=== PATIENT | female | born 1955 | race Caucasian/White ===

== ENCOUNTER 2021-01-11 06:18 | Inpatient (IN) | payer OTHER ==
[2021-01-05 12:34] LABS: HCT 38.7 % (37.0-47.0); HGB 13.7 g/dl (12.5-16.0); MCH 31.9 pg (25.0-31.0); MCHC 35.4 g/dL (32.0-36.0); MPV 8.9 fL (6.0-9.5); RBC 4.3 M/uL (4.20-5.40); RDW 11.9 % (11.5-14.0); WBC 7.7 K/uL (4.0-10.5)
[2021-01-05 12:35] LABS: BILIRUBIN NEGATIVE (NEGATIVE); BLOOD NEGATIVE Ery/uL (NEGATIVE); CLARITY SLIGHTLY HAZY (CLEAR); COLOR YELLOW (YELLOW); GLUCOSE (U) NORMAL (NORMAL); LEUKOCYTES 1+ Leu/uL (NEGATIVE); NITRITE NEGATIVE (NEGATIVE); PROTEIN NEGATIVE (NEGATIVE); SPECIFIC GRAVITY 1.015 (1.001-1.030); UROBILINOGEN 0.2 mg/dL (0.2-1.0); pH 7.5 (5.0-9.0)
[2021-01-05 12:45] LABS: INR 0.92 (0.9-1.2); PROTHROMBIN TIME 11.7 SECONDS (11.4-13.6); PTT 26.1 SECONDS (22.2-34.7)
[2021-01-05 13:45] LABS: CREATININE 0.64 mg/dL (0.51-0.95)
[2021-01-05 13:46] LABS: ALBUMIN 4.3 g/dL (3.4-5.0); BILIRUBIN - TOTAL 0.3 mg/dL (0.2-1.0); GLOBULIN (CALCULATION) 2.9 g/dL; TOTAL PROTEIN 7.2 g/dL (6.4-8.2)
[2021-01-05 13:48] LABS: POTASSIUM 4.2 mmol/L (3.5-5.1)
[~2021-01-11] VITALS: Ht 160 cm; Wt 62.0 kg
[~2021-01-11 06:18] MED LIST: AZELASTINE205.5 MCG/; BUPROPION HCL150 M1 PO; CLOBETASOL 0.0560 GM TOP; ESTRADIOL1 EAC1 TOP; GLUCOSAMINE CH1 EAC2 PO; IBUPROFEN400 MG PO; MELATONIN5 M2 PO; PAROXETINE HCL40 MG PO; PROVERA2.5 MG PO; TRETINOIN TOP; TYLENOL500 MG PO; VITAMIN D310 MC1 PO; ZETIA10 MG PO; [UNRECOGNIZED DRUG - OTHER] PO
--- NOTE | 2021-01-11 13:43 | NUR ---
[facility]. FIRST APPT. IS 01/13/21 @ 3:00 P.M. PT. HAS A ROLLING WALKER AND 09/21.
[2021-01-12 06:32] LABS: BASOPHIL 0.2 % (0-2); EOSINOPHIL 0.2 % (0-5); HCT 23.9 % (37.0-47.0); HGB 8.1 g/dl (12.5-16.0); LYMPHOCYTE 21.4 % (15-48); MCH 31.6 pg (25.0-31.0); MCHC 33.9 g/dL (32.0-36.0); MCV 93.4 fL (78.0-100.0); MONOCYTE 11.7 % (0-12); MPV 9.2 fL (6.0-9.5); NRBC 0; PLT 180 K/uL (150-400); RBC 2.56 M/uL (4.20-5.40); RDW 11.9 % (11.5-14.0); WBC 10.6 K/uL (4.0-10.5)
[2021-01-12 07:00] LABS: BUN/CREAT RATIO (CALC) 20.6 RATIO; CREATININE 0.63 mg/dL (0.51-0.95); POTASSIUM 4.3 mmol/L (3.5-5.1)
[2021-01-12] MEDS ORDERED: FEOSOL325 MG PO (09:17)
[2021-01-12] MEDS ORDERED: NORCO 5-325 TA1 EACH PO (09:17)
[2021-01-12] MEDS ORDERED: XARELTO10 MG PO (09:17)
[2021-01-12] MEDS ORDERED: ZOFRAN4 M1 PO (09:19)
--- NOTE | 2021-01-12 10:25 | NUR ---
tc to moises at [phone] with [facility] for PA of MACARIO. PA NUMBER IS [id number]. TC TO ERNESTO [phone] SPOKE WITH DAYO VARMA FOR MACARIO IS $40.00. ADVISED PT. OF THIS INFOMATION WELL CONFIRMED HER APPT. WITH ANDRÉS FOR 01/13/2021 @ 3:00 P.M.
== END 2021-01-12 12:37 | disposition home or self-care (01) | DRG 470 ==
LOC: FSDC 06:18 → FMS 06:18
PROVIDERS: ADMIT Legal Medicine
PROC: 0SRB04A Replacement of Left Hip Joint with Ceramic on Polyethylene Synthetic Substitute, Uncemented, Open Approach (ICD-10-PCS; principal; 2021-01-11 08:30)
DX: M16.12 Unilateral primary osteoarthritis, left hip (principal); F32.9 Major depressive disorder, single episode, unspecified; E78.00 Pure hypercholesterolemia, unspecified; Z20.822 Contact with and (suspected) exposure to COVID-19; Z90.722 Acquired absence of ovaries, bilateral; Z98.890 Other specified postprocedural states; Z79.899 Other long term (current) drug therapy
CPT/HCPCS: 36415; 71046; 73501; 73502; 76000; 80048; 80053; 81003; 85025; 85610; 85730; 86850; 86900; 86901; 93005; 94010; 94762; 97110; 97162; 97166; 97530-GP; 97535; C1776; J0171; J0697; J1100; J1170; J1885; J2250; J2270; J2405; J2704; J2795; J3010; J7120; U0002

== ENCOUNTER 2021-01-19 19:56 | Emergency (ER) | payer OTHER ==
[~2021-01-19 19:56] MED LIST changes: +FEOSOL325 MG PO; +NORCO 5-325 TA1 EACH PO; +XARELTO10 MG PO; +ZOFRAN4 M1 PO
[2021-01-19 20:46] LABS: BASOPHIL 0.4 % (0-2); EOSINOPHIL 0.6 % (0-5); HCT 27.3 % (37.0-47.0); LYMPHOCYTE 23.2 % (15-48); MCH 31.6 pg (25.0-31.0); MCV 95.8 fL (78.0-100.0); MONOCYTE 11.9 % (0-12); MPV 8.1 fL (6.0-9.5); NEUTROPHIL 62.6 % (41-80); NRBC 0; PLT 517 K/uL (150-400); RBC 2.85 M/uL (4.20-5.40); RDW 13.2 % (11.5-14.0)
[2021-01-19 20:56] LABS: INR 1.35 (0.9-1.2); PROTHROMBIN TIME 15.8 SECONDS (11.4-13.6); PTT 35.6 SECONDS (22.2-34.7)
[2021-01-19 21:05] LABS: IRON % SATURATION 14.3 %SAT (20-50)
[2021-01-19 21:12] LABS: ALBUMIN 3.2 g/dL (3.4-5.0); BILIRUBIN - TOTAL 0.5 mg/dL (0.2-1.0); BUN/CREAT RATIO (CALC) 15.5 RATIO; CREATININE 0.58 mg/dL (0.51-0.95); GLOBULIN (CALCULATION) 4.3 g/dL; POTASSIUM 3.1 mmol/L (3.5-5.1); TOTAL PROTEIN 7.5 g/dL (6.4-8.2)
== END 2021-01-19 23:10 | disposition home or self-care (01) ==
LOC: FER 19:56
PROVIDERS: Emergency Medicine Emergency Medical Services
DX: D50.9 Iron deficiency anemia, unspecified (principal); F32.9 Major depressive disorder, single episode, unspecified; Z98.890 Other specified postprocedural states; Z79.01 Long term (current) use of anticoagulants
CPT/HCPCS: 36415; 80053; 82270; 83540; 83550; 84484; 85025; 85610; 85730; 93005; J7030

== ENCOUNTER → 2021-11-03 | Day surgery (SDC) | payer OTHER ==
[~2021-11-03] VITALS: Ht 160 cm; Wt 62.0 kg
[~2021-11-03] MED LIST changes: +DESYREL50 MG PO; +PERCOCET 5-3251 EACH PO; +PRIMLEV 5-3001 EACH PO
== END | disposition home or self-care (01) ==
LOC: FAS 09:45
DX: D05.12 Intraductal carcinoma in situ of left breast (principal); C77.3 Secondary and unspecified malignant neoplasm of axilla and upper limb lymph nodes; E78.5 Hyperlipidemia, unspecified; E61.1 Iron deficiency; E55.9 Vitamin D deficiency, unspecified; F32.A Depression, unspecified; Z17.0 Estrogen receptor positive status [ER+]; Z96.649 Presence of unspecified artificial hip joint
CPT/HCPCS: A9541; J0690; J1100; J1170; J1885; J2250; J2405; J2704; J3010; J3490; J7120

== ENCOUNTER → 2021-11-18 | Day surgery (SDC) | payer OTHER ==
[~2021-11-18] VITALS: Ht 160 cm; Wt 62.0 kg
[2021-11-18 12:00] LABS: BASOPHIL 0.7 % (0-2); EOSINOPHIL 0.8 % (0-7); HCT 43.9 % (37.0-47.0); HGB 14.8 g/dl (12.5-16.0); LYMPHOCYTE 17.4 % (15-48); MCH 30.7 pg (25.0-31.0); MCHC 33.7 g/dL (32.0-36.0); MCV 91.1 fL (78.0-100.0); MONOCYTE 7.2 % (0-12); MPV 8.9 fL (6.0-9.5); NEUTROPHIL 73.6 % (41-80); NRBC 0; PLT 321 K/uL (150-400); RBC 4.82 M/uL (4.20-5.40); RDW 11.8 % (11.5-14.0); WBC 7.5 K/uL (4.0-10.5)
[2021-11-18 12:19] LABS: ALBUMIN 4.1 g/dL (3.4-5.0); BILIRUBIN - TOTAL 0.5 mg/dL (0.2-1.0); BUN/CREAT RATIO (CALC) 21.5 RATIO; CREATININE 0.65 mg/dL (0.51-0.95); GLOBULIN (CALCULATION) 3.4 g/dL; POTASSIUM 4.1 mmol/L (3.5-5.1); TOTAL PROTEIN 7.5 g/dL (6.4-8.2)
== END | disposition home or self-care (01) ==
LOC: FAS 11:03
PROVIDERS: Surgery
DX: C50.912 Malignant neoplasm of unspecified site of left female breast (principal); Z96.642 Presence of left artificial hip joint; Z90.721 Acquired absence of ovaries, unilateral
CPT/HCPCS: 36415; 71045; 76000; 80053; 85025; C1788; J0690; J1100; J1644; J1885; J2405; J2704; J3010; J7120